=== PATIENT | female | born 1970 | race Caucasian/White ===

== ENCOUNTER 2021-02-24 17:00 | Emergency (ER) | payer SELFPAY ==
[~2021-02-24] VITALS: Ht 157.5 cm; Wt 77.3 kg
[2021-02-24 17:01] VITALS: BP 150/84
== END 2021-02-24 18:16 | disposition left against medical advice (07) ==
LOC: EMS 17:03
DX: M54.9 Dorsalgia, unspecified (principal); Z53.21 Procedure and treatment not carried out due to patient leaving prior to being seen by health care provider

== ENCOUNTER 2022-07-26 14:31 | Emergency (ER) | payer SELFPAY ==
[~2022-07-26] VITALS: Ht 165.1 cm; Wt 79.0 kg
[2022-07-26] MEDS ORDERED: ALBU8HFA IH (14:39)
[2022-07-26] MEDS ORDERED: PredniSONE 20 MG TABLET PO ONE (14:45)
[2022-07-26] MEDS ORDERED: ALBUTEROL SULFATE 2.5 MG/0.5 ML NEB SOLUTION NEB ONE ×2 (14:45→16:45)
[2022-07-26] MEDS ORDERED: IPRATROPIUM BROMIDE 0.5 MG/2.5 ML NEB SOLUTION NEB ONE ×2 (14:45→16:45)
[2022-07-26 19:24] VITALS: BP 128/83
[2022-07-26] MEDS ORDERED: PRED-554 PO (19:27)
[2022-07-26] MEDS ORDERED: BENZ-227 PO (19:27)
[2022-07-26] MEDS ORDERED: ALBUTEROL SULFATE HFA 90 MCG/PUFF 8 GM INHALER IH ONE (19:30)
== END 2022-07-26 19:55 | disposition home or self-care (01) ==
LOC: EMS 14:45
DX: J45.909 Unspecified asthma, uncomplicated (principal); F17.210 Nicotine dependence, cigarettes, uncomplicated; Z88.0 Allergy status to penicillin
CPT/HCPCS: 99285; 71045; 94644; J7512; J3535; J7613

== ENCOUNTER 2022-08-10 20:42 | Inpatient (IN) | payer MEDICAID, OTHER ==
[~2022-08-10] VITALS: Ht 170.2 cm; Wt 79.5 kg
[~2022-08-10 20:42] MED LIST: ALBU8HFA IH; BENZ-227 PO; PRED-554 PO
[2022-08-10] MEDS ORDERED: ALBUTEROL SULFATE 2.5 MG/0.5 ML NEB SOLUTION NEB ONE ×2 (20:45→22:15)
[2022-08-10] MEDS ORDERED: IPRATROPIUM BROMIDE 0.5 MG/2.5 ML NEB SOLUTION NEB ONE ×2 (20:45→22:15)
[2022-08-10] MEDS ORDERED: 0.9% SODIUM CHLORIDE 15 ML NEB SOLUTION NEB ONE (20:48)
[2022-08-10] MEDS ORDERED: PredniSONE 20 MG TABLET PO ONE (22:15)
[2022-08-11] MEDS ORDERED: EPINEPHrine 1:1,000 [1 MG/ML] VIAL IM ONE (00:30)
[2022-08-11] MEDS ORDERED: MethylPREDNISolone SOD SUCC 125 MG/2 ML VIAL IVP ONE (00:30)
[2022-08-11] MEDS ORDERED: SODIUM CHLORIDE 0.9% 1,000 ML IV ONE (00:30)
[2022-08-11] MEDS ORDERED: ALBUTEROL SULFATE 2.5 MG/0.5 ML NEB SOLUTION NEB ONE (00:30)
[2022-08-11 00:56] LABS: BASOPHILS % (AUTO) 0.9 % (0.0-2.0); EOSINOPHILS % (AUTO) 3.6 % (1.0-6.0); HEMATOCRIT 37.5 % (36-46); HEMOGLOBIN 12.5 g/dL (12.0-16.0); LYMPHOCYTES # (AUTO) 1.3 K/uL (1.0-4.8); LYMPHOCYTES % (AUTO) 11.4 % (22.0-44.0); MEAN CORPUSCULAR HEMOGLOBIN 31.7 pg (26.0-34.0); MEAN CORPUSCULAR HGB CONC 33.4 G/dL (31.0-37.0); MEAN CORPUSCULAR VOLUME 95 fL (80-100); MONOCYTES # (AUTO) 0.9 K/uL (0.1-1.0); MONOCYTES % (AUTO) 7.6 % (2.0-9.0); NEUTROPHILS # (AUTO) 8.9 K/uL (1.8-7.7); NEUTROPHILS % (AUTO) 76.5 % (40.0-70.0); PLATELET COUNT (AUTO) 306 K/uL (150-450); RED BLOOD CELL COUNT(AUTO) 3.96 MIL/uL (4.00-5.20); RED CELL DISTRIBUTION WIDTH 14.5 % (11.5-14.5)
[2022-08-11 01:02] LABS: ANION GAP 9 mmol/L (8-16); CALCIUM, TOTAL 8.5 mg/dL (8.8-10.5); CARBON DIOXIDE 24 mmol/L (22-29); CHLORIDE 106 mmol/L (98-107); CREATININE 0.92 mg/dL (0.60-1.30); GLOMERULAR FILTR. RATE CALC > 60 mL/min (>60); GLUCOSE,RANDOM 168 mg/dL (70-110); POTASSIUM 3.6 mmol/L (3.5-5.1); SODIUM SERUM 139 mmol/L (136-145); UREA NITROGEN, BLOOD 11 mg/dL (7-18)
[2022-08-11 01:09] LABS: ALANINE AMINOTRANSFERASE 25 U/L (12-78); ALBUMIN 3.1 g/dL (3.4-5.0); ALKALINE PHOSPHATASE 109 U/L (46-116); ASPARTATE AMINOTRANSFERASE 13 U/L (15-37); BILIRUBIN,TOTAL 0.1 mg/dL (0.1-1.0)
[2022-08-11 03:30] LABS: COVID AG,FIA SOURCE NASAL SWAB
[2022-08-11 03:54] LABS: INFLUENZA TYPE A NEGATIVE FOR TYPE A (NEGATIVE); INFLUENZA TYPE B NEGATIVE FOR TYPE B (NEGATIVE)
[2022-08-11] MEDS ORDERED: ONDANSETRON HCL 4 MG/2 ML VIAL IVP PRN (04:00)
[2022-08-11] MEDS ORDERED: ALBUTEROL SULFATE 2.5 MG/0.5 ML NEB SOLUTION NEB PRN (04:00)
[2022-08-11] MEDS ORDERED: ACETAMINOPHEN 325 MG TABLET PO PRN (04:00)
[2022-08-11] MEDS ORDERED: IPRATROPIUM BROMIDE 0.5 MG/2.5 ML NEB SOLUTION NEB PRN (04:00)
[2022-08-11] MEDS: HEPARIN SODIUM,PORCINE 5,000 UNITS/ML VIAL SQ SCH ×2 (05:39→15:54)
[2022-08-11 17:18] VITALS: BP 133/70
[2022-08-12] MEDS ORDERED: MethylPREDNISolone SOD SUCC 125 MG/2 ML VIAL IVP SCH (09:00)
== END 2022-08-11 17:20 | disposition left against medical advice (07) | DRG 140 ==
LOC: EMS 20:43 → 6N 08-11 07:54
PROVIDERS: ADMIT Internal Medicine; ATTEND Internal Medicine
DX: J44.1 Chronic obstructive pulmonary disease with (acute) exacerbation (principal); J96.91 Respiratory failure, unspecified with hypoxia; J45.901 Unspecified asthma with (acute) exacerbation; F17.200 Nicotine dependence, unspecified, uncomplicated; Z20.822 Contact with and (suspected) exposure to COVID-19; Z88.0 Allergy status to penicillin; Z79.899 Other long term (current) drug therapy
CPT/HCPCS: 71045; 80053; 84484; 85025; 87804; 94640; 94644; 99285; J0171; J1644; J2930; J7030; 36415-L1; 36415-TC; J7613

== ENCOUNTER 2022-09-15 12:53 | Emergency (ER) | payer MEDICAID ==
[~2022-09-15] VITALS: Ht 157.5 cm; Wt 72.7 kg
[~2022-09-15 12:53] MED LIST changes: +ALBU18HF12 IH; -ALBU8HFA IH; -BENZ-227 PO; -PRED-554 PO
[2022-09-15] MEDS ORDERED: IPRATROPIUM BROMIDE 0.5 MG/2.5 ML NEB SOLUTION NEB ONE ×2 (13:45→15:30)
[2022-09-15] MEDS ORDERED: ALBUTEROL SULFATE 2.5 MG/0.5 ML NEB SOLUTION NEB ONE ×2 (13:45→15:30)
[2022-09-15] MEDS ORDERED: PredniSONE 20 MG TABLET PO ONE (13:45)
[2022-09-15 14:17] LABS: COVID AG,FIA SOURCE NASAL SWAB
[2022-09-15 14:38] LABS: INFLUENZA TYPE A NEGATIVE FOR TYPE A (NEGATIVE); INFLUENZA TYPE B NEGATIVE FOR TYPE B (NEGATIVE)
[2022-09-15] MEDS ORDERED: ALBUTEROL SULFATE HFA 90 MCG/PUFF 8 GM INHALER IH ONE (17:00)
[2022-09-15 17:08] VITALS: BP 145/86
[2022-09-15] MEDS ORDERED: PRED-554 PO (17:09)
== END 2022-09-15 17:40 | disposition home or self-care (01) ==
LOC: EMS 12:56
DX: J45.901 Unspecified asthma with (acute) exacerbation (principal); F17.210 Nicotine dependence, cigarettes, uncomplicated; J44.9 Chronic obstructive pulmonary disease, unspecified; I10 Essential (primary) hypertension; Z88.0 Allergy status to penicillin
CPT/HCPCS: 99291; 87426; 99406; 87804; 94644; 94645; J7512; J3535

== ENCOUNTER 2022-10-18 13:28 | Inpatient (IN) | payer MEDICAID, OTHER ==
[~2022-10-18] VITALS: Ht 157.5 cm; Wt 84.0 kg
[~2022-10-18 13:28] MED LIST changes: +PRED-554 PO
[2022-10-18] MEDS ORDERED: IPRATROPIUM BROMIDE 0.5 MG/2.5 ML NEB SOLUTION NEB ONE (14:15)
[2022-10-18] MEDS ORDERED: ALBUTEROL SULFATE 2.5 MG/0.5 ML NEB SOLUTION NEB ONE ×2 (14:15→15:30)
[2022-10-18 14:23] LABS: COVID AG,FIA SOURCE NASAL SWAB
[2022-10-18 15:03] LABS: BASOPHILS % (AUTO) 1.1 % (0.0-2.0); EOSINOPHILS % (AUTO) 9.2 % (1.0-6.0); HEMATOCRIT 42.6 % (36-46); HEMOGLOBIN 14.2 g/dL (12.0-16.0); LYMPHOCYTES # (AUTO) 3.1 K/uL (1.0-4.8); MEAN CORPUSCULAR HEMOGLOBIN 32.1 pg (26.0-34.0); MEAN CORPUSCULAR HGB CONC 33.3 G/dL (31.0-37.0); MEAN CORPUSCULAR VOLUME 96 fL (80-100); MONOCYTES % (AUTO) 10.3 % (2.0-9.0); NEUTROPHILS # (AUTO) 4.3 K/uL (1.8-7.7); NEUTROPHILS % (AUTO) 46.4 % (40.0-70.0); PLATELET COUNT (AUTO) 315 K/uL (150-450); RED BLOOD CELL COUNT(AUTO) 4.42 MIL/uL (4.00-5.20)
[2022-10-18 15:17] LABS: INFLUENZA TYPE A NEGATIVE FOR TYPE A (NEGATIVE); INFLUENZA TYPE B NEGATIVE FOR TYPE B (NEGATIVE)
[2022-10-18 15:22] LABS: ANION GAP 8 mmol/L (8-16); CALCIUM, TOTAL 9.4 mg/dL (8.8-10.5); CARBON DIOXIDE 27 mmol/L (22-29); CHLORIDE 103 mmol/L (98-107); GLOMERULAR FILTR. RATE CALC > 60 mL/min (>60); GLUCOSE,RANDOM 105 mg/dL (70-110); POTASSIUM 4.2 mmol/L (3.5-5.1); SODIUM SERUM 138 mmol/L (136-145); UREA NITROGEN, BLOOD 10 mg/dL (7-18)
[2022-10-18 15:29] LABS: ALANINE AMINOTRANSFERASE 22 U/L (12-78); ALBUMIN 3.5 g/dL (3.4-5.0); ALKALINE PHOSPHATASE 95 U/L (46-116); ASPARTATE AMINOTRANSFERASE 16 U/L (15-37); B-TYPE NATRIURETIC PEPTIDE 14 pg/mL (0-100); BILIRUBIN,TOTAL 0.1 mg/dL (0.1-1.0); TOTAL PROTEIN, SERUM 7.2 g/dL (6.4-8.2)
[2022-10-18] MEDS ORDERED: ALBUTEROL SULFATE 2.5 MG/0.5 ML NEB SOLUTION NEB PRN (17:00)
[2022-10-18] MEDS ORDERED: ONDANSETRON HCL 4 MG/2 ML VIAL IVP PRN (17:00)
[2022-10-18] MEDS ORDERED: ACETAMINOPHEN 325 MG TABLET PO PRN (17:00)
[2022-10-18] MEDS: MethylPREDNISolone SOD SUCC 125 MG/2 ML VIAL IVP SCH ×2 (17:22→23:37)
[2022-10-18 18:08] LABS: APPEARANCE,URINE CLEAR (CLEAR); BILIRUBIN,URINE NEGATIVE (NEGATIVE); GLUCOSE, URINE (UA) NEGATIVE (NEGATIVE); KETONES,URINE NEGATIVE (NEGATIVE); LEUKOCYTE ESTERASE ,URINE SMALL (NEGATIVE); OCCULT BLOOD,URINE NEGATIVE (NEGATIVE); PH,URINE 5.5 (5.0-8.0); PROTEIN,URINE NEGATIVE (NEGATIVE); SPECIFIC GRAVITIY, URINE 1.019 (1.003-1.030); UROBILINOGEN,URINE <=1.0 mg/dL (<=1.0)
[2022-10-18 18:54] LABS: NITRATE,URINE NEGATIVE (NEGATIVE)
[2022-10-18 18:55] LABS: BACTERIA,URINE Rare /HPF (None Seen); CALCIUM OXALATE CRYSTALS,UR Moderate /LPF (None Seen); RBC,URINE None Seen /HPF (0-2)
[2022-10-18] MEDS ORDERED: 0.9% SODIUM CHLORIDE 5 ML NEB SOLUTION NEB ONE (19:25)
[2022-10-18] MEDS: ALBUTEROL SULFATE 2.5 MG/0.5 ML NEB SOLUTION NEB SCH ×2 (19:27→23:29)
[2022-10-18 20:58] VITALS: BP 147/83
[2022-10-18] MEDS: DOCUSATE SODIUM 100 MG CAPSULE PO SCH (21:00)
[2022-10-18] MEDS: HEPARIN SODIUM,PORCINE 5,000 UNITS/ML VIAL SQ SCH (23:36)
[2022-10-19 01:06] LABS: GLUCOMETER DEV NAME(LOC) 6N.1; GLUCOSE,POINT OF CARE 149 MG/DL (70-110)
[2022-10-19] MEDS: ALBUTEROL SULFATE 2.5 MG/0.5 ML NEB SOLUTION NEB SCH ×6 (03:00→23:25)
[2022-10-19 04:40] VITALS: BP 140/79
[2022-10-19] MEDS: HEPARIN SODIUM,PORCINE 5,000 UNITS/ML VIAL SQ SCH ×3 (07:56→23:46)
[2022-10-19] MEDS: DOCUSATE SODIUM 100 MG CAPSULE PO SCH ×2 (07:57→20:54)
[2022-10-19] MEDS: FAMOTIDINE 20 MG TABLET PO SCH (07:57)
[2022-10-19] MEDS: MethylPREDNISolone SOD SUCC 125 MG/2 ML VIAL IVP SCH ×3 (07:59→23:45)
[2022-10-19 08:02] VITALS: BP 147/86
[2022-10-19] MEDS: MONTELUKAST SODIUM 10 MG TABLET PO SCH (10:55)
[2022-10-19 15:57] VITALS: BP 136/77
[2022-10-19 20:14] VITALS: BP 147/77
[2022-10-19] MEDS: GuaiFENesin [SUGAR-FREE] 200 MG/10 ML SOLUTION UDCUP PO PRN (20:51)
[2022-10-20] MEDS: GuaiFENesin [SUGAR-FREE] 200 MG/10 ML SOLUTION UDCUP PO PRN ×3 (02:17→13:37)
[2022-10-20] MEDS: ALBUTEROL SULFATE 2.5 MG/0.5 ML NEB SOLUTION NEB SCH ×4 (03:00→14:03)
[2022-10-20 03:45] VITALS: BP 133/74
[2022-10-20] MEDS: HEPARIN SODIUM,PORCINE 5,000 UNITS/ML VIAL SQ SCH (07:49)
[2022-10-20] MEDS: MethylPREDNISolone SOD SUCC 125 MG/2 ML VIAL IVP SCH (07:49)
[2022-10-20] MEDS: MONTELUKAST SODIUM 10 MG TABLET PO SCH (07:49)
[2022-10-20] MEDS: FAMOTIDINE 20 MG TABLET PO SCH (07:49)
[2022-10-20 07:54] VITALS: BP 120/81
[2022-10-20] MEDS ORDERED: PRED-554 PO (08:52)
[2022-10-20] MEDS ORDERED: ALBU18HF12 IH (08:53)
[2022-10-20] MEDS ORDERED: MONT-35 PO (08:53)
[2022-10-20] MEDS ORDERED: BENZ-227 PO (08:54)
[2022-10-20] MEDS: DOCUSATE SODIUM 100 MG CAPSULE PO SCH (09:00)
== END 2022-10-20 14:35 | disposition home or self-care (01) | DRG 140 ==
LOC: EMS 13:29 → AHU 18:31 → 6N 19:26
PROVIDERS: ADMIT Internal Medicine; ATTEND Internal Medicine
DX: J44.1 Chronic obstructive pulmonary disease with (acute) exacerbation (principal); J96.01 Acute respiratory failure with hypoxia; Z20.822 Contact with and (suspected) exposure to COVID-19; E66.9 Obesity, unspecified; Z87.891 Personal history of nicotine dependence; Z88.0 Allergy status to penicillin; Z79.899 Other long term (current) drug therapy; Z68.33 Body mass index [BMI] 33.0-33.9, adult; Z82.49 Family history of ischemic heart disease and other diseases of the circulatory system
CPT/HCPCS: 71045; 80053; 81001; 82962; 83880; 84484; 85025; 87804; 93005; 94640; 94644; 94645; 99285; J1644; J2930; 36415-L1; 36415-TC; J7613; U0003

== ENCOUNTER 2022-11-30 17:49 | Inpatient (IN) | payer OTHER ==
[~2022-11-30] VITALS: Ht 160 cm; Wt 80.0 kg
[~2022-11-30 17:49] MED LIST changes: +BENZ-227 PO; +MONT-35 PO
[2022-11-30] MEDS ORDERED: ALBUTEROL SULFATE 2.5 MG/0.5 ML NEB SOLUTION NEB ONE (18:15)
[2022-11-30] MEDS ORDERED: EPINEPHrine 1:1,000 [1 MG/ML] VIAL SQ ONE (18:15)
[2022-11-30] MEDS ORDERED: ALBUTEROL SULFATE 2.5 MG/0.5 ML 5 ML NEB SOLUTION NEB ONE ×2 (18:15→19:45)
[2022-11-30] MEDS ORDERED: IPRATROPIUM BROMIDE 0.5 MG/2.5 ML NEB SOLUTION NEB ONE ×2 (18:15→19:45)
[2022-11-30] MEDS ORDERED: MethylPREDNISolone SOD SUCC 125 MG/2 ML VIAL IVP ONE (18:15)
[2022-11-30 18:39] LABS: BASOPHILS % (AUTO) 0.9 % (0.0-2.0); EOSINOPHILS % (AUTO) 5.9 % (1.0-6.0); HEMOGLOBIN 13.8 g/dL (12.0-16.0); LYMPHOCYTES # (AUTO) 2.6 K/uL (1.0-4.8); MEAN CORPUSCULAR HEMOGLOBIN 31.6 pg (26.0-34.0); MEAN CORPUSCULAR HGB CONC 32.9 G/dL (31.0-37.0); MEAN CORPUSCULAR VOLUME 96 fL (80-100); MONOCYTES % (AUTO) 8.1 % (2.0-9.0); NEUTROPHILS # (AUTO) 8.4 K/uL (1.8-7.7); NEUTROPHILS % (AUTO) 65.1 % (40.0-70.0); PLATELET COUNT (AUTO) 262 K/uL (150-450); RED BLOOD CELL COUNT(AUTO) 4.38 MIL/uL (4.00-5.20); RED CELL DISTRIBUTION WIDTH 13.6 % (11.5-14.5)
[2022-11-30 18:45] VITALS: PULSE 103; RESP 24; O2SAT 95
[2022-11-30 18:47] LABS: ANION GAP 6 mmol/L (8-16); CALCIUM, TOTAL 9.2 mg/dL (8.8-10.5); CARBON DIOXIDE 24 mmol/L (22-29); CHLORIDE 102 mmol/L (98-107); CREATININE 0.83 mg/dL (0.60-1.30); GLOMERULAR FILTR. RATE CALC > 60 mL/min (>60); GLUCOSE,RANDOM 114 mg/dL (70-110); POTASSIUM 3.6 mmol/L (3.5-5.1); SODIUM SERUM 132 mmol/L (136-145)
[2022-11-30 18:54] LABS: ALANINE AMINOTRANSFERASE 21 U/L (12-78); ALBUMIN 3.6 g/dL (3.4-5.0); ALKALINE PHOSPHATASE 109 U/L (46-116); ASPARTATE AMINOTRANSFERASE 15 U/L (15-37); BILIRUBIN,TOTAL 0.3 mg/dL (0.1-1.0); TOTAL PROTEIN, SERUM 7.5 g/dL (6.4-8.2)
[2022-11-30 18:56] LABS: LACTIC ACID 0.6 mmol/L (0.4-2.0)
[2022-11-30 18:58] LABS: B-TYPE NATRIURETIC PEPTIDE 9 pg/mL (0-100)
[2022-11-30 19:00] LABS: COVID AG,FIA SOURCE NASOPHARYNGEAL
[2022-11-30 19:20] LABS: INFLUENZA TYPE A NEGATIVE FOR TYPE A (NEGATIVE); INFLUENZA TYPE B NEGATIVE FOR TYPE B (NEGATIVE)
[2022-11-30 19:40] VITALS: PULSE 103; RESP 24; O2SAT 95
[2022-11-30 19:45] VITALS: PULSE 110; RESP 22; O2SAT 98
[2022-11-30] MEDS ORDERED: AZITHROMYCIN 500 MG/NS 250 ML IV ONE (19:45)
[2022-11-30] MEDS ORDERED: OXYGEN THERAPY IH SCH (20:00)
[2022-11-30 20:25] VITALS: PULSE 112; RESP 22; O2SAT 86
[2022-11-30 21:20] VITALS: PULSE 126; RESP 20; O2SAT 99
[2022-12-01] VITALS (17 sets, daily range): BP systolic 90–136; BP diastolic 57–75; PULSE 96–122; RESP 20–24; TEMP 97.8–98.7; O2SAT 89–96
[2022-12-01] MEDS: IPRATROPIUM BROMIDE 0.5 MG/2.5 ML NEB SOLUTION NEB PRN ×4 (01:16→11:45)
[2022-12-01] MEDS: ALBUTEROL SULFATE 2.5 MG/0.5 ML NEB SOLUTION NEB PRN ×4 (01:16→11:44)
[2022-12-01 03:37] LABS: APPEARANCE,URINE CLEAR (CLEAR); BILIRUBIN,URINE NEGATIVE (NEGATIVE); GLUCOSE, URINE (UA) >=1000 mg/dL (NEGATIVE); KETONES,URINE TRACE mg/dL (NEGATIVE); LEUKOCYTE ESTERASE ,URINE SMALL (NEGATIVE); OCCULT BLOOD,URINE NEGATIVE (NEGATIVE); PROTEIN,URINE NEGATIVE (NEGATIVE); SPECIFIC GRAVITIY, URINE 1.022 (1.003-1.030); UROBILINOGEN,URINE <=1.0 mg/dL (<=1.0)
[2022-12-01 04:01] LABS: NITRATE,URINE POSITIVE (NEGATIVE)
[2022-12-01 04:02] LABS: BACTERIA,URINE Many /HPF (None Seen); RBC,URINE None Seen /HPF (0-2)
[2022-12-01 04:04] LABS: CALCIUM OXALATE CRYSTALS,UR Few /LPF (None Seen)
[2022-12-01] MEDS ORDERED: MAGNESIUM HYDROXIDE SUSPENSION 30 ML UDCUP PO PRN (12:45)
[2022-12-01] MEDS ORDERED: MONTELUKAST SODIUM 10 MG TABLET PO ONE (12:45)
[2022-12-01] MEDS ORDERED: BISACODYL 10 MG RECTAL RECTAL SUPPOSITORY PR PRN (12:45)
[2022-12-01] MEDS ORDERED: OxyCODONE HCL/ACETAMINOPHEN 5-325 MG TABLET PO PRN (12:45)
[2022-12-01] MEDS ORDERED: MORPHINE SULFATE 2 MG/ML SYRINGE IVP PRN (12:45)
[2022-12-01] MEDS ORDERED: ALBUTEROL SULFATE 2.5 MG/0.5 ML NEB SOLUTION NEB PRN (12:45)
[2022-12-01] MEDS ORDERED: ZOLPIDEM TARTRATE 5 MG TABLET PO PRN (12:45)
[2022-12-01] MEDS ORDERED: IPRATROPIUM BROMIDE 0.5 MG/2.5 ML NEB SOLUTION NEB PRN (12:45)
[2022-12-01] MEDS ORDERED: ONDANSETRON HCL 4 MG/2 ML VIAL IVP PRN (12:45)
[2022-12-01] MEDS: BENZONATATE 100 MG CAPSULE PO SCH ×2 (14:00→23:32)
[2022-12-01] MEDS: HEPARIN SODIUM,PORCINE 5,000 UNITS/ML VIAL SQ SCH ×2 (14:00→23:16)
[2022-12-01] MEDS: ALBUTEROL SULFATE 2.5 MG/0.5 ML NEB SOLUTION NEB SCH ×3 (14:59→22:47)
[2022-12-01] MEDS: IPRATROPIUM BROMIDE 0.5 MG/2.5 ML NEB SOLUTION NEB SCH ×3 (14:59→22:47)
[2022-12-01] MEDS: MethylPREDNISolone SOD SUCC 125 MG/2 ML VIAL IVP SCH ×2 (19:06→23:32)
[2022-12-01] MEDS: GuaiFENesin/D-METHORPHAN [SUGAR-FREE] 200-20MG/10 ML SYRUP UDCUP PO PRN ×2 (20:18→23:32)
[2022-12-01] MEDS: DOCUSATE SODIUM 100 MG CAPSULE PO SCH (20:18)
[2022-12-02] VITALS (19 sets, daily range): BP systolic 124–146; BP diastolic 72–83; PULSE 85–123; RESP 20–24; TEMP 97.9–99; O2SAT 91–100
[2022-12-02] MEDS: IPRATROPIUM BROMIDE 0.5 MG/2.5 ML NEB SOLUTION NEB SCH ×6 (02:15→22:56)
[2022-12-02] MEDS: ALBUTEROL SULFATE 2.5 MG/0.5 ML NEB SOLUTION NEB SCH ×6 (02:15→22:56)
[2022-12-02] MEDS: GuaiFENesin/D-METHORPHAN [SUGAR-FREE] 200-20MG/10 ML SYRUP UDCUP PO PRN ×3 (05:27→20:06)
[2022-12-02] MEDS: MethylPREDNISolone SOD SUCC 125 MG/2 ML VIAL IVP SCH ×3 (05:27→18:14)
[2022-12-02] MEDS: DOCUSATE SODIUM 100 MG CAPSULE PO SCH (08:48)
[2022-12-02] MEDS: PANTOPRAZOLE SODIUM 40 MG DR TABLET PO SCH (08:48)
[2022-12-02] MEDS: BENZONATATE 100 MG CAPSULE PO SCH ×2 (08:48→15:58)
[2022-12-02] MEDS: HEPARIN SODIUM,PORCINE 5,000 UNITS/ML VIAL SQ SCH ×2 (08:48→15:58)
[2022-12-02] MEDS: MONTELUKAST SODIUM 10 MG TABLET PO SCH (08:48)
[2022-12-02 13:53] LABS: EOSINOPHILS % (AUTO) 0 % (1.0-6.0); HEMATOCRIT 41.6 % (36-46); HEMOGLOBIN 13.7 g/dL (12.0-16.0); LYMPHOCYTES # (AUTO) 0.8 K/uL (1.0-4.8); LYMPHOCYTES % (AUTO) 3.1 % (22.0-44.0); MEAN CORPUSCULAR HEMOGLOBIN 31.8 pg (26.0-34.0); MEAN CORPUSCULAR VOLUME 96 fL (80-100); MONOCYTES # (AUTO) 0.9 K/uL (0.1-1.0); MONOCYTES % (AUTO) 3.6 % (2.0-9.0); NEUTROPHILS # (AUTO) 22.6 K/uL (1.8-7.7); PLATELET COUNT (AUTO) 272 K/uL (150-450); RED BLOOD CELL COUNT(AUTO) 4.32 MIL/uL (4.00-5.20); RED CELL DISTRIBUTION WIDTH 13.8 % (11.5-14.5)
[2022-12-02 13:55] LABS: NEUTROPHILS % (AUTO) 93.3 % (40.0-70.0)
[2022-12-02 14:05] LABS: CALCIUM, TOTAL 9.5 mg/dL (8.8-10.5); CREATININE 1.02 mg/dL (0.60-1.30)
[2022-12-02 14:12] LABS: ALBUMIN 3.1 g/dL (3.4-5.0); BILIRUBIN,TOTAL 0.2 mg/dL (0.1-1.0); TOTAL PROTEIN, SERUM 7.5 g/dL (6.4-8.2)
[2022-12-02] MEDS ORDERED: SODIUM CHLORIDE 0.9% 250 ML IV ONE (15:54)
[2022-12-02] MEDS: LEVOFLOXACIN 750 MG/D5% WATER 150 ML IV SCH (15:59)
[2022-12-03] VITALS (14 sets, daily range): BP systolic 119–136; BP diastolic 70–82; PULSE 79–111; RESP 18–24; TEMP 98–98.7; O2SAT 90–98
[2022-12-03] MEDS: BENZONATATE 100 MG CAPSULE PO SCH ×4 (00:02→23:23)
[2022-12-03] MEDS: MethylPREDNISolone SOD SUCC 125 MG/2 ML VIAL IVP SCH ×5 (00:02→23:23)
[2022-12-03] MEDS: HEPARIN SODIUM,PORCINE 5,000 UNITS/ML VIAL SQ SCH ×4 (00:07→23:22)
[2022-12-03] MEDS: ALBUTEROL SULFATE 2.5 MG/0.5 ML NEB SOLUTION NEB SCH ×6 (02:58→22:56)
[2022-12-03] MEDS: IPRATROPIUM BROMIDE 0.5 MG/2.5 ML NEB SOLUTION NEB SCH ×6 (02:58→22:55)
[2022-12-03] MEDS: GuaiFENesin/D-METHORPHAN [SUGAR-FREE] 200-20MG/10 ML SYRUP UDCUP PO PRN ×3 (03:11→18:06)
[2022-12-03] MEDS: MONTELUKAST SODIUM 10 MG TABLET PO SCH (08:10)
[2022-12-03] MEDS: PANTOPRAZOLE SODIUM 40 MG DR TABLET PO SCH (08:10)
[2022-12-03] MEDS: LEVOFLOXACIN 750 MG/D5% WATER 150 ML IV SCH (16:13)
[2022-12-04] VITALS (14 sets, daily range): BP systolic 129–153; BP diastolic 75–93; PULSE 68–91; RESP 18–22; TEMP 97.8–99.2; O2SAT 94–99
[2022-12-04] MEDS: GuaiFENesin/D-METHORPHAN [SUGAR-FREE] 200-20MG/10 ML SYRUP UDCUP PO PRN ×3 (01:50→18:13)
[2022-12-04] MEDS: ALBUTEROL SULFATE 2.5 MG/0.5 ML NEB SOLUTION NEB SCH ×6 (03:00→22:46)
[2022-12-04] MEDS: IPRATROPIUM BROMIDE 0.5 MG/2.5 ML NEB SOLUTION NEB SCH ×6 (03:00→22:46)
[2022-12-04] MEDS: ACETAMINOPHEN 325 MG TABLET PO PRN ×2 (05:28→18:14)
[2022-12-04] MEDS: MethylPREDNISolone SOD SUCC 125 MG/2 ML VIAL IVP SCH ×4 (05:29→23:43)
[2022-12-04] MEDS: PANTOPRAZOLE SODIUM 40 MG DR TABLET PO SCH (08:20)
[2022-12-04] MEDS: MONTELUKAST SODIUM 10 MG TABLET PO SCH (08:20)
[2022-12-04] MEDS: BENZONATATE 100 MG CAPSULE PO SCH ×3 (08:21→23:43)
[2022-12-04] MEDS: HEPARIN SODIUM,PORCINE 5,000 UNITS/ML VIAL SQ SCH ×3 (08:21→23:43)
[2022-12-04] MEDS: LEVOFLOXACIN 750 MG/D5% WATER 150 ML IV SCH (16:06)
[2022-12-05] VITALS (11 sets, daily range): BP systolic 142–156; BP diastolic 85–97; PULSE 71–89; RESP 16–20; TEMP 97.8–98; O2SAT 18–98
[2022-12-05] MEDS: IPRATROPIUM BROMIDE 0.5 MG/2.5 ML NEB SOLUTION NEB SCH ×4 (03:03→15:07)
[2022-12-05] MEDS: ALBUTEROL SULFATE 2.5 MG/0.5 ML NEB SOLUTION NEB SCH ×4 (03:03→15:07)
[2022-12-05] MEDS: MethylPREDNISolone SOD SUCC 125 MG/2 ML VIAL IVP SCH (05:27)
[2022-12-05] MEDS: PANTOPRAZOLE SODIUM 40 MG DR TABLET PO SCH (08:21)
[2022-12-05] MEDS: MONTELUKAST SODIUM 10 MG TABLET PO SCH (08:21)
[2022-12-05] MEDS: BENZONATATE 100 MG CAPSULE PO SCH ×2 (08:21→16:05)
[2022-12-05] MEDS: HEPARIN SODIUM,PORCINE 5,000 UNITS/ML VIAL SQ SCH ×2 (08:21→16:05)
[2022-12-05] MEDS: ACETAMINOPHEN 325 MG TABLET PO PRN (08:26)
[2022-12-05] MEDS: GuaiFENesin/D-METHORPHAN [SUGAR-FREE] 200-20MG/10 ML SYRUP UDCUP PO PRN ×2 (09:39→15:03)
[2022-12-05] MEDS ORDERED: MethylPREDNISolone SOD SUCC 125 MG/2 ML VIAL IVP SCH (12:00)
[2022-12-05] MEDS ORDERED: PredniSONE 20 MG TABLET PO STA (14:24)
[2022-12-05] MEDS ORDERED: CEPH-558 PO (15:14)
[2022-12-05] MEDS ORDERED: GUAIFDM PO (15:14)
[2022-12-05] MEDS ORDERED: PRED-729 PO (15:14)
[2022-12-05] MEDS ORDERED: IPRA4AER IH (15:14)
[2022-12-05] MEDS ORDERED: ALBU18HF12 IH (15:14)
[2022-12-05] MEDS ORDERED: MONT-35 PO (15:14)
[2022-12-05] MEDS ORDERED: BENZ100C68 PO (15:14)
[2022-12-05] MEDS ORDERED: CefTRIAXone 1 GM/DEXTROSE 50 ML IV SCH (16:00)
[2022-12-06] MEDS ORDERED: PredniSONE 20 MG TABLET PO SCH (09:00)
== END 2022-12-05 18:15 | disposition home or self-care (01) | DRG 140 ==
LOC: EMS 18:07 → 5S 21:05 → 6S 12-02 15:15
PROVIDERS: ADMIT Hospitalist; ATTEND Hospitalist
DX: J44.1 Chronic obstructive pulmonary disease with (acute) exacerbation (principal); J96.00 Acute respiratory failure, unspecified whether with hypoxia or hypercapnia; J45.901 Unspecified asthma with (acute) exacerbation; D72.829 Elevated white blood cell count, unspecified; T38.0X5A Adverse effect of glucocorticoids and synthetic analogues, initial encounter; F17.210 Nicotine dependence, cigarettes, uncomplicated; Z20.822 Contact with and (suspected) exposure to COVID-19; Z88.0 Allergy status to penicillin; Z82.49 Family history of ischemic heart disease and other diseases of the circulatory system; Y92.89 Other specified places as the place of occurrence of the external cause
CPT/HCPCS: 71045; 80053; 81001; 83036; 83605; 83880; 84484; 85025; 87040; 87086; 87186; 87804; 93005; 94640; 94644; 94645; 99291; J0171; J0456; J0696; J1644; J1956; J2930; J7050; Q9967; 36415-L1; 36415-TC; J7613

== ENCOUNTER 2023-10-14 12:23 | Emergency (ER) | payer OTHER ==
[~2023-10-14] VITALS: Ht 157.5 cm; Wt 81.8 kg
[~2023-10-14 12:23] MED LIST changes: -BENZ-227 PO; +CODE10LI2 PO; +IPRA4AER IH; +LEVO-72 PO
[2023-10-14 12:43] VITALS: BP 124/64; PULSE 132; RESP 18; TEMP 97.6
== END 2023-10-14 13:51 | disposition left against medical advice (07) ==
LOC: EMS 12:55
DX: M54.50 Low back pain, unspecified (principal); Z53.21 Procedure and treatment not carried out due to patient leaving prior to being seen by health care provider
CPT/HCPCS: 99281; Z7502

== ENCOUNTER 2023-12-19 20:25 | Emergency (ER) | payer OTHER ==
[~2023-12-19] VITALS: Ht 157.5 cm; Wt 72.0 kg
[~2023-12-19 20:25] MED LIST changes: -CODE10LI2 PO; -IPRA4AER IH; -MONT-35 PO; -PRED-554 PO
[2023-12-19 22:52] LABS: BASOPHILS % (AUTO) 0.1 % (0.0-2.0); EOSINOPHILS % (AUTO) 0.2 % (1.0-6.0); HEMOGLOBIN 14.7 g/dL (12.0-16.0); LYMPHOCYTES # (AUTO) 0.6 K/uL (1.0-4.8); LYMPHOCYTES % (AUTO) 4.3 % (22.0-44.0); MEAN CORPUSCULAR HEMOGLOBIN 31.1 pg (26.0-34.0); MEAN CORPUSCULAR HGB CONC 32.5 G/dL (31.0-37.0); MEAN CORPUSCULAR VOLUME 96 fL (80-100); MONOCYTES # (AUTO) 0.1 K/uL (0.1-1.0); NEUTROPHILS # (AUTO) 12.7 K/uL (1.8-7.7); PLATELET COUNT (AUTO) 225 K/uL (150-450); RED BLOOD CELL COUNT(AUTO) 4.71 MIL/uL (4.00-5.20); RED CELL DISTRIBUTION WIDTH 14.4 % (11.5-14.5); WHITE BLOOD COUNT (AUTO) 13.4 K/uL (4.5-11.0)
[2023-12-19 22:57] LABS: NEUTROPHILS % (AUTO) 94.4 % (40.0-70.0)
[2023-12-19 23:01] LABS: CALCIUM, TOTAL 9.4 mg/dL (8.8-10.5); CREATININE 1.32 mg/dL (0.60-1.30); POTASSIUM 3.6 mmol/L (3.5-5.1)
[2023-12-19 23:15] LABS: ALBUMIN 3.7 g/dL (3.4-5.0); BILIRUBIN,TOTAL 0.7 mg/dL (0.1-1.0); TOTAL PROTEIN, SERUM 8.1 g/dL (6.4-8.2)
[2023-12-19] MEDS: ONDANSETRON HCL 4 MG/2 ML VIAL IVP ONE (23:27)
[2023-12-20] MEDS ORDERED: OMEP20 PO
[2023-12-20 00:53] VITALS: BP 129/70; PULSE 68; RESP 18; TEMP 97.3
[2023-12-22] MEDS ORDERED: LEVO-72 PO (16:48)
== END 2023-12-20 00:53 | disposition home or self-care (01) ==
LOC: EMS 20:25
DX: K80.50 Calculus of bile duct without cholangitis or cholecystitis without obstruction (principal); K80.20 Calculus of gallbladder without cholecystitis without obstruction; J44.9 Chronic obstructive pulmonary disease, unspecified; Z88.0 Allergy status to penicillin
CPT/HCPCS: 99285; 96374; 76700; 71045; 80053; 83690; 85025; 36415; 93005; J2405

== ENCOUNTER 2024-09-21 05:44 | Emergency (ER) | payer OTHER ==
[~2024-09-21] VITALS: Ht 158.8 cm; Wt 72.7 kg
[~2024-09-21 05:44] MED LIST changes: +OMEP-148 PO; +PRED-729 PO; +TIOT185 IH
[2024-09-21 06:47] LABS: BASOPHILS % (AUTO) 0.6 % (0.0-2.0); EOSINOPHILS % (AUTO) 4.9 % (1.0-6.0); HEMATOCRIT 41.9 % (36-46); HEMOGLOBIN 13.6 g/dL (12.0-16.0); LYMPHOCYTES # (AUTO) 2.4 K/uL (1.0-4.8); LYMPHOCYTES % (AUTO) 27.6 % (22.0-44.0); MEAN CORPUSCULAR HEMOGLOBIN 31.9 pg (26.0-34.0); MEAN CORPUSCULAR HGB CONC 32.5 G/dL (31.0-37.0); MEAN CORPUSCULAR VOLUME 98 fL (80-100); MONOCYTES # (AUTO) 0.9 K/uL (0.1-1.0); NEUTROPHILS # (AUTO) 4.9 K/uL (1.8-7.7); NEUTROPHILS % (AUTO) 56.9 % (40.0-70.0); PLATELET COUNT (AUTO) 307 K/uL (150-450); RED BLOOD CELL COUNT(AUTO) 4.27 MIL/uL (4.00-5.20); RED CELL DISTRIBUTION WIDTH 15.9 % (11.5-14.5); WHITE BLOOD COUNT (AUTO) 8.6 K/uL (4.5-11.0)
[2024-09-21] MEDS ORDERED: 0.9% SODIUM CHLORIDE 5 ML NEB SOLUTION NEB ONE (06:51)
[2024-09-21 06:55] VITALS: PULSE 87; RESP 20; O2SAT 97
[2024-09-21 06:56] LABS: ANION GAP 6 mmol/L (8-16); CALCIUM, TOTAL 9.5 mg/dL (8.8-10.5); CARBON DIOXIDE 26 mmol/L (22-29); CHLORIDE 107 mmol/L (98-107); CREATININE 0.76 mg/dL (0.60-1.30); GLOMERULAR FILTR. RATE CALC > 60 mL/min (>60); GLUCOSE,RANDOM 103 mg/dL (70-110); POTASSIUM 4.1 mmol/L (3.5-5.1); SODIUM SERUM 139 mmol/L (136-145); UREA NITROGEN, BLOOD 17 mg/dL (7-18)
[2024-09-21] MEDS: ALBUTEROL SULFATE 2.5 MG/0.5 ML 5 ML NEB SOLUTION NEB ONE (06:59)
[2024-09-21] MEDS: ALBUTEROL SULFATE HFA 90 MCG/PUFF 8 GM INHALER IH ONE (06:59)
[2024-09-21 07:05] LABS: TROPONIN I-HIGH SENSITIVITY 6 ng/L (<51)
[2024-09-21 07:20] LABS: B-TYPE NATRIURETIC PEPTIDE 6 pg/mL (0-100)
[2024-09-21] MEDS: IPRATROPIUM BROMIDE 0.5 MG/2.5 ML NEB SOLUTION NEB ONE (07:28)
[2024-09-21 08:05] VITALS: PULSE 88; RESP 20; O2SAT 98
[2024-09-21 10:03] VITALS: TEMP 98.2
[2024-09-21 10:21] VITALS: BP 101/68; PULSE 98; RESP 18; O2SAT 96
== END 2024-09-21 10:43 | disposition home or self-care (01) ==
LOC: EMS 05:46
DX: J44.1 Chronic obstructive pulmonary disease with (acute) exacerbation (principal); Z88.0 Allergy status to penicillin; Z79.52 Long term (current) use of systemic steroids; Z79.899 Other long term (current) drug therapy
CPT/HCPCS: 99285; 71045; 80048; 83880; 84484; 85025; 36415; 94644; 93005; J3535

== ENCOUNTER 2024-10-06 18:58 | Emergency (ER) | payer OTHER ==
[~2024-10-06] VITALS: Ht 175.3 cm; Wt 93.0 kg
[2024-10-06 19:03] VITALS: TEMP 97.2
[2024-10-06 20:59] LABS: COVID AG,FIA SOURCE NASAL SWAB
[2024-10-06 21:04] LABS: EOSINOPHILS % (AUTO) 3.6 % (1.0-6.0); HEMATOCRIT 41.3 % (36-46); HEMOGLOBIN 13.7 g/dL (12.0-16.0); LYMPHOCYTES # (AUTO) 2.9 K/uL (1.0-4.8); LYMPHOCYTES % (AUTO) 30.1 % (22.0-44.0); MEAN CORPUSCULAR HEMOGLOBIN 31.7 pg (26.0-34.0); MEAN CORPUSCULAR HGB CONC 33.1 G/dL (31.0-37.0); MEAN CORPUSCULAR VOLUME 96 fL (80-100); MONOCYTES % (AUTO) 10.8 % (2.0-9.0); NEUTROPHILS # (AUTO) 5.2 K/uL (1.8-7.7); NEUTROPHILS % (AUTO) 54.5 % (40.0-70.0); PLATELET COUNT (AUTO) 241 K/uL (150-450); RED BLOOD CELL COUNT(AUTO) 4.32 MIL/uL (4.00-5.20); RED CELL DISTRIBUTION WIDTH 15.1 % (11.5-14.5); WHITE BLOOD COUNT (AUTO) 9.6 K/uL (4.5-11.0)
[2024-10-06 21:16] LABS: ANION GAP 7 mmol/L (8-16); CALCIUM, TOTAL 9.6 mg/dL (8.8-10.5); CARBON DIOXIDE 27 mmol/L (22-29); CHLORIDE 104 mmol/L (98-107); CREATININE 0.88 mg/dL (0.60-1.30); GLOMERULAR FILTR. RATE CALC > 60 mL/min (>60); GLUCOSE,RANDOM 106 mg/dL (70-110); POTASSIUM 3.9 mmol/L (3.5-5.1); SODIUM SERUM 138 mmol/L (136-145); UREA NITROGEN, BLOOD 13 mg/dL (7-18)
[2024-10-06 21:21] LABS: ALBUMIN 3.2 g/dL (3.4-5.0); BILIRUBIN,DIRECT 0.1 mg/dL (0.00-0.20); BILIRUBIN,TOTAL 0.2 mg/dL (0.1-1.0); TOTAL PROTEIN, SERUM 6.6 g/dL (6.4-8.2)
[2024-10-06 21:25] LABS: TROPONIN I-HIGH SENSITIVITY 8 ng/L (<51)
[2024-10-06 21:26] LABS: INFLUENZA TYPE A NEGATIVE FOR TYPE A (NEGATIVE); INFLUENZA TYPE B NEGATIVE FOR TYPE B (NEGATIVE); SARS-COV2 (COVID) ANTIGEN,FIA Negative (Negative)
[2024-10-06 21:29] LABS: B-TYPE NATRIURETIC PEPTIDE 7 pg/mL (0-100)
[2024-10-06 22:12] LABS: APPEARANCE,URINE CLEAR (CLEAR); BILIRUBIN,URINE NEGATIVE (NEGATIVE); COLOR,URINE LIGHT YELLOW (YELLOW); GLUCOSE, URINE (UA) NEGATIVE (NEGATIVE); KETONES,URINE NEGATIVE (NEGATIVE); LEUKOCYTE ESTERASE ,URINE NEGATIVE (NEGATIVE); NITRATE,URINE NEGATIVE (NEGATIVE); OCCULT BLOOD,URINE NEGATIVE (NEGATIVE); PROTEIN,URINE NEGATIVE (NEGATIVE); SPECIFIC GRAVITIY, URINE 1.019 (1.003-1.030); UROBILINOGEN,URINE <=1.0 mg/dL (<=1.0)
[2024-10-06] MEDS ORDERED: BUDE10.27 IH (22:37)
[2024-10-06] MEDS ORDERED: PRED-554 PO (22:37)
[2024-10-06] MEDS: PredniSONE 20 MG TABLET PO ONE (22:45)
[2024-10-06 22:56] VITALS: BP 121/75; PULSE 83; RESP 20; O2SAT 99
== END 2024-10-06 22:59 | disposition home or self-care (01) ==
LOC: EMS 18:58
DX: J44.1 Chronic obstructive pulmonary disease with (acute) exacerbation (principal); Z88.0 Allergy status to penicillin; Z79.52 Long term (current) use of systemic steroids; Z79.899 Other long term (current) drug therapy; Z20.822 Contact with and (suspected) exposure to COVID-19
CPT/HCPCS: 99285; 71045; 87426; 80048; 80076; 81003; 83880; 84484; 85025; 87804; 36415; 93005; J7512

== ENCOUNTER 2025-02-22 08:07 | Emergency (ER) | payer OTHER ==
[~2025-02-22] VITALS: Ht 157.5 cm; Wt 95.1 kg
[~2025-02-22 08:07] MED LIST changes: +BUDE10.27 IH; +PRED-554 PO
[2025-02-22] MEDS ORDERED: IPRATROPIUM BROMIDE 0.5 MG/2.5 ML NEB SOLUTION NEB ONE (08:13)
[2025-02-22] MEDS ORDERED: ALBUTEROL SULFATE 2.5 MG/0.5 ML 5 ML NEB SOLUTION NEB ONE (08:13)
[2025-02-22 08:15] VITALS: TEMP 97.9
[2025-02-22 08:22] VITALS: PULSE 105; RESP 23; O2SAT 93
[2025-02-22] MEDS: IPRATROPIUM BROMIDE 0.5 MG/2.5 ML NEB SOLUTION NEB ONE (08:22)
[2025-02-22] MEDS: ALBUTEROL SULFATE 2.5 MG/0.5 ML 5 ML NEB SOLUTION NEB ONE (08:22)
[2025-02-22 08:34] LABS: PLATELET COUNT (AUTO) 276 K/uL (150-450); RED BLOOD CELL COUNT(AUTO) 4.76 MIL/uL (4.00-5.20); RED CELL DISTRIBUTION WIDTH 13.9 % (11.5-14.5); WHITE BLOOD COUNT (AUTO) 9.6 K/uL (4.5-11.0)
[2025-02-22 08:43] LABS: CALCIUM, TOTAL 9.0 mg/dL (8.8-10.5); CREATININE 0.85 mg/dL (0.60-1.30); GLOMERULAR FILTR. RATE CALC > 60 mL/min (>60); GLUCOSE,RANDOM 112 mg/dL (70-110); SODIUM SERUM 138 mmol/L (136-145); UREA NITROGEN, BLOOD 14 mg/dL (7-18)
[2025-02-22 08:52] LABS: TROPONIN I-HIGH SENSITIVITY 7 ng/L (<51)
[2025-02-22 09:14] VITALS: PULSE 94; RESP 20; O2SAT 98
[2025-02-22] MEDS: LEVOFLOXACIN 750 MG/D5% WATER 150 ML IV ONE (09:48)
[2025-02-22] MEDS: AZITHROMYCIN 500 MG/NS 250 ML IV ONE (09:50)
[2025-02-22] MEDS ORDERED: ALBUTEROL SULFATE 2.5 MG/0.5 ML NEB SOLUTION NEB ONE (10:01)
[2025-02-22 12:31] VITALS: BP 153/85; PULSE 100; RESP 20; O2SAT 92
[2025-02-22] MEDS ORDERED: ONDANSETRON HCL 4 MG/2 ML VIAL IVP PRN (13:30)
[2025-02-22] MEDS ORDERED: ALBUTEROL SULFATE 2.5 MG/0.5 ML NEB SOLUTION NEB PRN (13:30)
[2025-02-22] MEDS ORDERED: ACETAMINOPHEN 325 MG TABLET PO PRN (13:30)
[2025-02-22] MEDS ORDERED: ZOLPIDEM TARTRATE 5 MG TABLET PO PRN (13:30)
[2025-02-22 14:33] LABS: APPEARANCE,URINE CLEAR (CLEAR); GLUCOSE, URINE (UA) NEGATIVE (NEGATIVE); LEUKOCYTE ESTERASE ,URINE NEGATIVE (NEGATIVE); NITRATE,URINE NEGATIVE (NEGATIVE); OCCULT BLOOD,URINE NEGATIVE (NEGATIVE); SPECIFIC GRAVITIY, URINE 1.015 (1.003-1.030)
[2025-02-22 14:34] LABS: PH,URINE DRUG SCREEN 5.5 (5.0-8.0)
[2025-02-22 14:36] LABS: ALCOHOL, URINE DRUG SCREEN NEGATIVE (NEGATIVE); AMPHET/METH SCREEN,URINE POSITIVE (NEGATIVE); BARBITURATE SCREEN, URINE NEGATIVE (NEGATIVE); CANNABINOID SCREEN,URINE NEGATIVE (NEGATIVE); COCAINE SCREEN,URINE NEGATIVE (NEGATIVE); METHADONE SCREEN, URINE NEGATIVE (NEGATIVE)
[2025-02-22] MEDS: HEPARIN SODIUM,PORCINE 5,000 UNITS/ML VIAL SQ SCH (15:32)
[2025-02-22] MEDS ORDERED: DOCUSATE SODIUM 100 MG CAPSULE PO SCH (21:00)
[2025-02-23] MEDS ORDERED: FAMOTIDINE 20 MG TABLET PO SCH (09:00)
== END 2025-02-22 17:05 | disposition left against medical advice (07) ==
LOC: EMS 08:07 → UNDOADMIN 13:27 → EDH 13:27
DX: R06.02 Shortness of breath (principal); J45.901 Unspecified asthma with (acute) exacerbation; F15.90 Other stimulant use, unspecified, uncomplicated; E66.9 Obesity, unspecified; R60.0 Localized edema; I10 Essential (primary) hypertension; Z79.899 Other long term (current) drug therapy; Z87.891 Personal history of nicotine dependence; Z88.0 Allergy status to penicillin
CPT/HCPCS: 99285; 93306; 96365; 71045; 96375; 80048; 81003; 83880; 84484; 85025; 85610; 85730; 36415; 94640; 93005; 96376; 96368; 96372; 80307; J2919; J0456; J1644; J1956; 94644; 96367; G0378; J7613